=== PATIENT | female | born 1930 | race Caucasian/White ===

== ENCOUNTER 2017-08-22 10:43 | Observation (INO) | payer OTHER ==
[~2017-08-22] VITALS: Ht 157.5 cm; Wt 62.6 kg
[~2017-08-22 10:43] MED LIST: ASPIR 8181 M1 PO; Aspirin E.C. PO; COUMADIN2 MG PO; COUMADIN4 MG PO; Ceftin PO; Coumadin,Jantoven PO; DIGOXIN250 MCG PO; Fish Oil PO; IMDUR30 MG PO; ISOSORBIDE MONO30 MG PO; K-DUR20 MEQ PO; KLOR-CON 1010 ME1 PO; KLOR-CON M2020 MEQ PO; LASIX40 MG PO; LASIX80 MG PO; LISINOPRIL20 MG PO; LISINOPRIL5 MG PO; LOPRESSOR50 MG PO; Levaquin PO; OMEPRAZOLE20 MG PO; PRILOSEC20 MG PO; Phoslo PO; SIMVASTATIN40 MG PO; Theragran PO; Vitamin B-12 PO; Vitamin D PO; Zithromax PO
[2017-08-22 11:24] LABS: HEMATOCRIT 31.8 % (36.0-46.0); MCH 29.8 PG (29.0-34.0); MCHC 32.1 G/DL (30.0-36.0); MEAN PLAT.VOLUME 8.9 uM^3 (9.5-12.4); PLATELET COUNT 272 K/uL (156-360); RBC DIS.WIDTH-CV 15.7 % (11.8-14.6); RBC DIS.WIDTH-SD 53.1 % (39-53); RED BLOOD COUNT 3.42 M/uL (3.80-5.20); WHITE BLOOD COUNT 9.6 K/uL (4.1-10.2)
[2017-08-22 11:38] LABS: CHLORIDE 101 mEq/L (99-109); POTASSIUM 3.8 mEq/L (3.7-5.4); SODIUM 140 mEq/L (136-147)
[2017-08-22 11:40] LABS: GLUCOSE 112 mg/dL (70-99)
[2017-08-22 11:41] LABS: ANION GAP 15 MEQ/L (2-14)
[2017-08-22 11:44] LABS: GFR ESTIMATE (CALCULATED) > 59 mL/min/; UREA NITROGEN (BUN) 30 mg/dL (9-23)
[2017-08-22 11:45] LABS: TROP-I INTERPRETATION NEGATIVE
[2017-08-22 11:49] LABS: INTER. NORMALIZED RATIO 1.9; PROTHROMBIN TIME 21.3 SEC (10.2-12.9)
[2017-08-22 11:52] LABS: PTT 30.6 SEC (25-37)
[2017-08-22 11:55] LABS: MAGNESIUM 1.7 mg/dL (1.3-2.7)
[2017-08-22 12:05] LABS: DIGOXIN 1.1 ng/mL (0.8-2.0)
[2017-08-22] MEDS ORDERED: DIGOXIN125 MCG PO (15:07)
[2017-08-22] MEDS ORDERED: WARFARIN SODIUM4 MG PO (15:10)
[2017-08-22] MEDS ORDERED: CALCIUM 500 MG1 EACH PO (15:12)
[2017-08-22] MEDS ORDERED: FISH OIL 1,0001 EAC7 PO (15:12)
[2017-08-22] MEDS ORDERED: ARTHRITIS PAIN650 M5 PO (15:13)
[2017-08-22] MEDS ORDERED: MULTIVITAMIN1 EAC2 PO (15:13)
[2017-08-22] MEDS ORDERED: METHYLPREDNISOLO4 MG PO (15:14)
[2017-08-22] MEDS ORDERED: CYANOCOBALAM1000 MCG PO (15:14)
[2017-08-22] MEDS ORDERED: FOLIC ACID1 MG PO (15:15)
[2017-08-22] MEDS ORDERED: METFORMIN HCL1000 MG PO (15:16)
[2017-08-22] MEDS ORDERED: METHOTREXATE2.5 MG PO (15:16)
[2017-08-22 17:07] VITALS: BP 140/78
[2017-08-22 18:16] LABS: TROP-I INTERPRETATION NEGATIVE; TROPONIN-I 0.12 ng/mL (0.0-0.30)
[2017-08-22 20:03] LABS: HEMATOCRIT 27.6 % (36.0-46.0); MCV 94.2 FL (83-99)
[2017-08-22 23:52] VITALS: BP 133/59
[2017-08-23] VITALS (10 sets, daily range): BP systolic 113–167; BP diastolic 56–76
[2017-08-23 01:09] LABS: TROP-I INTERPRETATION NEGATIVE
[2017-08-23 06:54] LABS: HEMATOCRIT 34.4 % (36.0-46.0); MCV 94.2 FL (83-99)
[2017-08-23 06:58] LABS: INTER. NORMALIZED RATIO 1.8; PROTHROMBIN TIME 20.4 SEC (10.2-12.9)
[2017-08-23 07:01] LABS: PTT 27.9 SEC (25-37)
[2017-08-23 19:56] LABS: MCV 93.2 FL (83-99)
[2017-08-24 04:20] VITALS: BP 132/63
[2017-08-24 06:32] LABS: HEMATOCRIT 30.5 % (36.0-46.0); MCH 29.3 PG (29.0-34.0); MCHC 31.5 G/DL (30.0-36.0); MEAN PLAT.VOLUME 9.5 uM^3 (9.5-12.4); PLATELET COUNT 224 K/uL (156-360); RBC DIS.WIDTH-CV 15.5 % (11.8-14.6); RBC DIS.WIDTH-SD 52.2 % (39-53); RED BLOOD COUNT 3.28 M/uL (3.80-5.20); WHITE BLOOD COUNT 7.2 K/uL (4.1-10.2)
[2017-08-24 06:58] LABS: ANION GAP 8 MEQ/L (2-14); CHLORIDE 104 MEQ/L (99-109); GFR ESTIMATE (CALCULATED) > 59 mL/min/; GLUCOSE 131 mg/dL (70-99); POTASSIUM 3.8 MEQ/L (3.7-5.4); SAMPLE HEMOLYSIS CHECK 0; SAMPLE ICTERIC CHECK 0; SAMPLE LIPEMIA CHECK 0; SODIUM 140 MEQ/L (136-147); UREA NITROGEN (BUN) 19 mg/dL (9-23)
[2017-08-24 07:40] VITALS: BP 129/58
[2017-08-24 11:00] LABS: HEMATOCRIT 28.8 % (36.0-46.0); MCV 93.5 FL (83-99)
== END 2017-08-24 13:22 | disposition home or self-care (01) ==
LOC: EME 10:43 → EDOF 14:09 → 5EAST 14:09 → ENRESERV 14:12 → EDOF 14:15 → ENRESERV 14:16 → 5EAST 16:58 → ENPENDDIS 08-24 → 5EAST 08-24 13:22
PROVIDERS: Emergency Medicine; Internal Medicine; Physician Assistant
PROC: 30233N1 Transfusion of Nonautologous Red Blood Cells into Peripheral Vein, Percutaneous Approach (ICD-10-PCS; 2017-08-22)
PROC: 0DJ08ZZ Inspection of Upper Intestinal Tract, Via Natural or Artificial Opening Endoscopic (ICD-10-PCS; principal; 2017-08-23)
DX: K92.1 Melena (principal); D64.9 Anemia, unspecified; K29.60 Other gastritis without bleeding; K21.9 Gastro-esophageal reflux disease without esophagitis; R07.9 Chest pain, unspecified; I25.10 Atherosclerotic heart disease of native coronary artery without angina pectoris; Z95.5 Presence of coronary angioplasty implant and graft; I25.2 Old myocardial infarction; I48.2 Chronic atrial fibrillation; I11.0 Hypertensive heart disease with heart failure; I50.32 Chronic diastolic (congestive) heart failure; E78.2 Mixed hyperlipidemia; M19.90 Unspecified osteoarthritis, unspecified site; K44.9 Diaphragmatic hernia without obstruction or gangrene; Z79.01 Long term (current) use of anticoagulants; Z79.1 Long term (current) use of non-steroidal anti-inflammatories (NSAID); Z95.810 Presence of automatic (implantable) cardiac defibrillator; Z82.49 Family history of ischemic heart disease and other diseases of the circulatory system; Z79.82 Long term (current) use of aspirin; Z79.52 Long term (current) use of systemic steroids; Z90.49 Acquired absence of other specified parts of digestive tract; Z90.710 Acquired absence of both cervix and uterus
CPT/HCPCS: 71020; 74177; 80048; 80162; 83605; 83735; 83880; 84484; 85014; 85018; 85027; 85610; 85730; 86850; 86900; 86901; 86920; 93005; 99281; 99285; C9113; G0378; J0330; J1940; J3010; J7030; J7509; P9016; S0028

== ENCOUNTER 2017-08-24 13:50 | Emergency (ER) | payer OTHER ==
[~2017-08-24] VITALS: Ht 157.5 cm; Wt 63.6 kg
[~2017-08-24 13:50] MED LIST changes: +ARTHRITIS PAIN650 M5 PO; +CALCIUM 500 MG1 EACH PO; +CYANOCOBALAM1000 MCG PO; +DIGOXIN125 MCG PO; +FISH OIL 1,0001 EAC7 PO; +FOLIC ACID1 MG PO; +METFORMIN HCL1000 MG PO; +METHOTREXATE2.5 MG PO; +METHYLPREDNISOLO4 MG PO; +MULTIVITAMIN1 EAC2 PO; +WARFARIN SODIUM4 MG PO
[2017-08-24 15:02] LABS: INTER. NORMALIZED RATIO 1.6; PROTHROMBIN TIME 17.7 SEC (10.2-12.9)
[2017-08-24 16:37] VITALS: BP 119/58
== END 2017-08-24 17:02 | disposition home or self-care (01) ==
LOC: EME 13:50
PROVIDERS: Emergency Medicine
DX: S09.8XXA Other specified injuries of head, initial encounter (principal); S80.02XA Contusion of left knee, initial encounter; S80.01XA Contusion of right knee, initial encounter; S00.83XA Contusion of other part of head, initial encounter; S60.811A Abrasion of right wrist, initial encounter; W01.198A Fall on same level from slipping, tripping and stumbling with subsequent striking against other object, initial encounter; Y93.01 Activity, walking, marching and hiking; Y92.481 Parking lot as the place of occurrence of the external cause; Z79.01 Long term (current) use of anticoagulants; Z79.82 Long term (current) use of aspirin; I10 Essential (primary) hypertension
CPT/HCPCS: 70450; 85610; 99281; 99284